=== PATIENT | female | born 1955 | race Caucasian/White ===

== ENCOUNTER → 2024-02-02 12:00 | Outpatient (REF) | payer MEDICARE, OTHER, SELFPAY ==
[2024-02-02 14:32] LABS: HDL Cholesterol 45 mg/dl; LDL Cholesterol, Calculated 143 mg/dl; Total Cholesterol 214 mg/dl (50-199); Triglyceride 131 mg/dl (10-149); Very Low Density Lipoprotein 26 mg/dl (0-30)
[2024-02-02 14:54] LABS: Glycohemoglobin (HgbA1c) 7.8 % (4.0-5.6)
== END ==
LOC: REG 12:00
PROVIDERS: ATTENDING PHYSICIAN Student in an Organized Health Care Education/Training Program
DX: E11.8 Type 2 diabetes mellitus with unspecified complications (principal); E78.5 Hyperlipidemia, unspecified
CPT/HCPCS: 36415; 80061; 83036

== ENCOUNTER → 2024-08-10 09:12 | Outpatient (REF) | payer MEDICARE, OTHER, SELFPAY ==
[2024-08-10 11:31] LABS: ALT (SGPT) 29 U/L (0-35); AST (SGOT) 25 U/L (14-36); HDL Cholesterol 48 mg/dl; LDL Cholesterol, Calculated 179 mg/dl; Total Cholesterol 263 mg/dl (50-199); Triglyceride 184 mg/dl (10-149); Very Low Density Lipoprotein 36 mg/dl (0-30)
[2024-08-10 11:43] LABS: Microalbumin, Random Urine 4.9 mg/dl (0.6-1.7); Microalbumin/creatinine Ratio 33.9 mg/g
[2024-08-10 13:05] LABS: Glycohemoglobin (HgbA1c) 6.9 % (4.0-5.6)
== END ==
LOC: REG 09:12
PROVIDERS: ATTENDING PHYSICIAN Student in an Organized Health Care Education/Training Program
DX: E78.5 Hyperlipidemia, unspecified (principal); R74.01 Elevation of levels of liver transaminase levels; E11.65 Type 2 diabetes mellitus with hyperglycemia
CPT/HCPCS: 36415; 80061; 82043; 82570; 83036; 84450; 84460

== ENCOUNTER → 2024-10-07 10:20 | Outpatient (REF) | payer MEDICARE, OTHER, SELFPAY ==
[2024-10-07 11:46] LABS: % Basophils 0.8 % (0-2); % Eosinophils 3.1 % (0-6); % Immature Granulocytes 0.3 % (0-0.5); % Lymphocytes 24.6 % (20.5-51.1); % Monocytes 6.9 % (1.7-9.3); % Neutrophils 64.3 % (42.2-75.2); Absolute Basophils 0.1 10^3/uL (0-0.2); Absolute Eosinophils 0.2 10^3/uL (0-0.7); Absolute Lymphocytes 1.9 10^3/uL (1.2-3.4); Absolute Monocytes 0.5 10^3/uL (0.1-0.6); Absolute Neutrophils 4.9 10^3/uL (1.4-6.5); Hematocrit 43.4 % (37.0-47.0); Hemoglobin 15.3 g/dL (12.0-16.0); Mean Corp Hgb Conc. 35.3 g/dL (33.0-37.0); Mean Corpuscular Hgb 32.5 pg (27.0-31.0); Mean Corpuscular Volume 92.1 fL (81.0-99.0); Mean Platelet Volume 9.2 fL (7.4-10.4); Nucleated Red Blood Cells % 0 %; Platelet Count 339 10^3/uL (130-400); Red Blood Cell Count 4.71 10^6/uL (4.20-5.40); Red Cell Dist. Width 11.9 % (11.5-14.5); White Blood Cell Count 7.7 10^3/uL (4.8-10.8)
[2024-10-07 11:54] LABS: INR 0.95; PT 12.9 Sec (11.4-14.6)
[2024-10-07 11:55] LABS: APTT 34.9 Sec (23.4-35.0)
[2024-10-07 12:10] LABS: ALT (SGPT) 29 U/L (0-35); AST (SGOT) 24 U/L (14-36); Albumin 4.7 g/dl (3.5-5.0); Alkaline Phosphatase 96 U/L (38-126); Blood Urea Nitrogen 20 mg/dl (7-17); Calcium 9.6 mg/dl (8.4-10.2); Carbon Dioxide 25 mmol/L (22-30); Chloride 103 mmol/L (98-107); Glucose 143 mg/dl (70-99); Potassium 4.9 mmol/L (3.5-5.1); Sodium 138 mmol/L (135-145); Total Bilirubin 0.7 mg/dl (0.2-1.3); Total Protein 7.6 g/dl (6.3-8.2); eGFR > 60.00
[2024-10-07 12:15] LABS: Erythrocyte Sed Rate 28 mm/hour (0-20)
== END ==
LOC: REG 10:20
PROVIDERS: FAMILY PHYSICIAN Student in an Organized Health Care Education/Training Program
DX: Z01.818 Encounter for other preprocedural examination (principal); Z51.81 Encounter for therapeutic drug level monitoring
CPT/HCPCS: 36415; 80053; 85025; 85610; 85652; 85730

== ENCOUNTER → 2025-05-26 09:14 | Outpatient (REF) | payer MEDICARE, OTHER, SELFPAY ==
[2025-05-26 11:08] LABS: HDL Cholesterol 44 mg/dl; LDL Cholesterol, Calculated 187 mg/dl; Very Low Density Lipoprotein 38 mg/dl (0-30)
[2025-05-26 11:32] LABS: Microalb - Urine Creatinine 120.600 mg/dl
[2025-05-26 11:37] LABS: Microalbumin, Random Urine 1.0 mg/dl (0.6-1.7)
[2025-05-26 14:30] LABS: Glycohemoglobin (HgbA1c) 7.7 % (4.0-5.6)
== END ==
LOC: REG 09:14
PROVIDERS: ATTENDING PHYSICIAN Student in an Organized Health Care Education/Training Program
DX: E11.8 Type 2 diabetes mellitus with unspecified complications (principal); E03.9 Hypothyroidism, unspecified; E78.5 Hyperlipidemia, unspecified
CPT/HCPCS: 36415; 80061; 82043; 82570; 83036; 84443

== ENCOUNTER → 2025-07-06 15:43 | Outpatient (REF) | payer MEDICARE, OTHER, SELFPAY ==
[2025-07-06 16:48] LABS: Hematocrit 42.7 % (37.0-47.0); Hemoglobin 14.7 g/dL (12.0-16.0); Mean Corp Hgb Conc. 34.4 g/dL (33.0-37.0); Mean Corpuscular Volume 92.0 fL (81.0-99.0); Nucleated Red Blood Cells % 0 %; Platelet Count 289 10^3/uL (130-400); Red Cell Dist. Width 12.6 % (11.5-14.5)
[2025-07-06 16:51] LABS: INR 0.95; PT 13.0 Sec (11.4-14.6)
[2025-07-06 16:52] LABS: APTT 33.0 Sec (23.4-35.0)
[2025-07-06 17:17] LABS: ALT (SGPT) 31 U/L (0-35); AST (SGOT) 24 U/L (14-36); Albumin 4.5 g/dl (3.5-5.0); Alkaline Phosphatase 93 U/L (38-126); Blood Urea Nitrogen 18 mg/dl (7-17); Calcium 9.6 mg/dl (8.4-10.2); Carbon Dioxide 27 mmol/L (22-30); Chloride 105 mmol/L (98-107); Glucose 146 mg/dl (70-99); Potassium 5.3 mmol/L (3.5-5.1); Sodium 140 mmol/L (135-145); Total Protein 7.5 g/dl (6.3-8.2); eGFR > 60.00
== END ==
LOC: REG 15:43
PROVIDERS: ATTENDING PHYSICIAN Orthopaedic Surgery; FAMILY PHYSICIAN Student in an Organized Health Care Education/Training Program
DX: Z01.818 Encounter for other preprocedural examination (principal); Z51.81 Encounter for therapeutic drug level monitoring
CPT/HCPCS: 36415; 80053; 85025; 85610; 85652; 85730